=== PATIENT | female | born 1995 | race Caucasian/White ===

== ENCOUNTER 2021-02-13 01:30 | Emergency (ER) | payer BC ==
[~2021-02-13] VITALS: Ht 154.9 cm; Wt 81.8 kg
[2021-02-13 01:38] VITALS: BP 152/93
[2021-02-13] MEDS ORDERED: EPIPEN 2-PAK1 MG/ML IM (02:40)
[2021-02-13 03:03] VITALS: PULSE 100
== END 2021-02-13 03:03 | disposition home or self-care (01) ==
LOC: COL.ER 01:30
DX: T78.40XA Allergy, unspecified, initial encounter (principal)
CPT/HCPCS: J1100

== ENCOUNTER 2022-04-05 21:45 | Emergency (ER) | payer BC ==
[~2022-04-05] VITALS: Ht 154.9 cm; Wt 90.9 kg
[~2022-04-05 21:45] MED LIST: EPIPEN 2-PAK1 MG/ML IM
[2022-04-05 21:59] VITALS: BP 115/86; TEMP 98
[2022-04-05 23:07] LABS: COLLECTION METHOD CLEAN CATCH
[2022-04-05 23:13] LABS: PH 8 (5-8); SQUAMOUS EPITHELIAL 0-2 /hpf (0-10); URINE APPEARANCE Clear (CLEAR/HAZY); URINE BACTERIA None Seen /hpf (NONE SEEN); URINE BILIRUBIN Negative (NEGATIVE); URINE BLOOD 3+ (NEGATIVE); URINE COLOR Straw (YELLOW); URINE GLUCOSE Negative (NEGATIVE); URINE KETONE Negative (NEGATIVE); URINE LEUKOCYTE ESTERASE Negative (NEGATIVE); URINE NITRATE Negative (NEGATIVE); URINE PROTEIN(semi-quant) Negative (NEGATIVE); URINE RBC None Seen /hpf (0-2); URINE UROBILINOGEN Negative (NEGATIVE)
[2022-04-06 00:24] VITALS: PULSE 72
== END 2022-04-06 00:26 | disposition home or self-care (01) ==
LOC: COL.ER 21:45
PROVIDERS: Student in an Organized Health Care Education/Training Program
DX: O20.9 Hemorrhage in early pregnancy, unspecified (principal); Z3A.15 15 weeks gestation of pregnancy

== ENCOUNTER 2022-04-13 10:15 | Emergency (ER) | payer BC ==
[~2022-04-13] VITALS: Ht 154.9 cm; Wt 88.2 kg
[2022-04-13 10:21] VITALS: TEMP 97.6
[2022-04-13 11:08] LABS: COLLECTION METHOD CLEAN CATCH
[2022-04-13 11:25] LABS: AMORPHOUS CRYSTAL Present (NOT PRESENT); MUCOUS Present (NOT PRESENT); PH 5 (5-8); URINE APPEARANCE Cloudy (CLEAR/HAZY); URINE BACTERIA Occasional /hpf (NONE SEEN); URINE BILIRUBIN Negative (NEGATIVE); URINE BLOOD Negative (NEGATIVE); URINE COLOR Yellow (YELLOW); URINE GLUCOSE Negative (NEGATIVE); URINE KETONE 2+ (NEGATIVE); URINE LEUKOCYTE ESTERASE 3+ (NEGATIVE); URINE NITRATE Negative (NEGATIVE); URINE PROTEIN(semi-quant) Negative (NEGATIVE); URINE UROBILINOGEN Negative (NEGATIVE)
[2022-04-13 11:28] LABS: BASO # 0.1 K/mm3 (0.0-0.2); BASO % 0.3 % (0.0-2.0); EOS # 0.1 K/mm3 (0.0-0.7); EOS % 0.9 % (0.0-4.0); GRAN # 11.7 K/mm3 (1.4-6.5); GRAN % 77.3 % (42.2-75.2); HEMOGLOBIN 11.2 g/dl (12.5-16.0); LYMPH # 2.1 K/mm3 (1.2-3.4); LYMPH % 13.9 % (20.0-51.0); MEAN CELL VOLUME 85 fl (80.0-100.0); MEAN CORPUSCULAR HEMOGLOBIN 28 pg (27-31); MEAN CORPUSCULAR HGB CONC 33 g/dl (33.0-37.0); MEAN PLATELET VOLUME 9.5 fl (7.4-10.4); MONO % 6.3 % (1.7-9.3); PLATELET COUNT 237 K/mm3 (130-400); RED BLOOD COUNT 3.95 M/mm3 (4.10-5.30); REDCELL DISTRIBUTION WIDTH-CV 13.5 % (11.5-14.5)
[2022-04-13 11:30] LABS: HEMATOCRIT 33.6 % (37.0-47.0)
[2022-04-13 11:50] LABS: ALBUMIN 3.1 gm/dL (3.5-5.0); BILIRUBIN,TOTAL 0.3 mg/dL (0.2-1.2); CALCIUM 9.2 mg/dL (8.4-10.2); CREATININE, serum 0.61 mg/dL (0.57-1.11); POTASSIUM 3.6 mmol/L (3.5-4.5)
[2022-04-13] MEDS ORDERED: CEFTIN 250250 MG/TAB PO (12:53)
[2022-04-13 13:01] VITALS: BP 108/64; PULSE 75
== END 2022-04-13 13:03 | disposition home or self-care (01) ==
LOC: COL.ER 10:15
PROVIDERS: Nurse Practitioner
DX: O23.42 Unspecified infection of urinary tract in pregnancy, second trimester (principal); N39.0 Urinary tract infection, site not specified; Z3A.16 16 weeks gestation of pregnancy
CPT/HCPCS: J0696; J2550; J7030